=== PATIENT | male | born 1940 | race Caucasian/White ===

== ENCOUNTER 2016-06-21 13:50 | Inpatient (IN) | payer OTHER ==
[~2016-06-21] VITALS: Ht 175.3 cm; Wt 68.0 kg
[~2016-06-21 13:50] MED LIST: ASPI-612 PO
--- NOTE | 2016-06-21 13:59 | NUR ---
PT DOES NOT REMEMBER THE NAMES OF HIS HOME MEDICATION.
--- NOTE | 2016-06-21 14:05 | NUR ---
Pt c/o CP, "pressure," around 6-7/10 for 1 month, intermittantly, released from [facility] earlier this week, but pt does not recall why he was hospitalized (A&Ox2). Pt denies SOB, n/v, pain radiation, dizziness. Pt placed on monitor, EKG done and given to ERMD, O2 via NC at 2lpm. Started IV 20g Right FA, blood drawn and given to oil field laborer bedside.
[2016-06-21] MEDS ORDERED: OLANZAPINE 5 MG TABLET PO ONE (14:15)
[2016-06-21] MEDS ORDERED: OLANZAPINE 5 MG TABLET ONE (14:26)
[2016-06-21 14:34] LABS: BASOPHILS % (AUTO) 0.7 % (0.0-2.0); EOSINOPHILS # (AUTO) 0.5 K/uL (0.0-0.7); EOSINOPHILS % (AUTO) 7.6 % (0.0-7.0); HEMATOCRIT 42.8 % (36.7-47.1); HEMOGLOBIN 14.4 g/dL (12.5-16.3); LYMPHOCYTES # (AUTO) 0.9 K/uL (40.0-85.0); LYMPHOCYTES % (AUTO) 12.4 % (20.5-51.5); MEAN CORPUSCULAR HEMOGLOBIN 33.3 uug (23.8-33.4); MEAN CORPUSCULAR HGB CONC 34 g/dL (32.5-36.3); MEAN CORPUSCULAR VOLUME 98.7 fL (73.0-96.2); MONOCYTES # (AUTO) 0.5 K/uL (2.0-10.0); MONOCYTES % (AUTO) 7.7 % (0.0-11.0); NEUTROPHILS # (AUTO) 5.2 K/uL (1.8-8.9); NEUTROPHILS % (AUTO) 71.6 % (38.5-71.5); PLATELET COUNT (AUTO) 320 K/uL (152-348); RED BLOOD CELL COUNT(AUTO) 4.33 MIL/uL (4.06-5.63); WHITE BLOOD COUNT (AUTO) 7.1 K/uL (3.6-10.2)
[2016-06-21 14:41] LABS: CALCIUM 9.2 mg/dL (8.5-10.1); CREATININE 0.9 mg/dL (0.6-1.3); POTASSIUM 4.2 mmol/L (3.5-5.1)
[2016-06-21 14:49] LABS: LACTIC ACID 1.3 mmol/L (0.4-2.0); TROPONIN I 0.107 ng/mL (0.00-0.056)
[2016-06-21 14:54] LABS: ALBUMIN 3.1 g/dL (3.4-5.0); BILIRUBIN,DIRECT 0.2 mg/dL (0.0-0.2); BILIRUBIN,TOTAL 0.6 mg/dL (0.2-1.0)
[2016-06-21] MEDS ORDERED: NITROGLYCERIN OINT 1 GM PACKET TP ONE ×2 (15:00→15:33)
[2016-06-21] MEDS ORDERED: ASPIRIN 325 MG TABLET PO ONE (15:00)
[2016-06-21] MEDS ORDERED: ENOXAPARIN SODIUM 30 MG/0.3 ML DISP.SYRIN SUBCUT ONE (15:00)
[2016-06-21] MEDS ORDERED: ENOXAPARIN SODIUM 80 MG/0.8 ML DISP.SYRIN SQ ONE (15:33)
[2016-06-21] MEDS ORDERED: ASPIRIN 325 MG TABLET ONE (15:33)
--- NOTE | 2016-06-21 15:35 | NUR ---
Pt finished lunch/dinner tray
--- NOTE | 2016-06-21 15:46 | NUR ---
Gave report to ADILSON Leon
[2016-06-21 16:45] VITALS: BP 104/59
--- NOTE | 2016-06-21 17:37 | NUR ---
SPOKE TO DR MASTERSON ABOUT CONTINUING HOME MEDICATIONS, PT REPORTS ONLY ASPIRIN. DR MASTERSON REQUESTING TO LOG INTO [place] [employer] TO FIND OUT HOME MEDS, HOWEVER I DO NOT HAVE ACCESS. SPOKE WITH PHARMACY AND HOUSE SUP BUT NO BODY HAS ACCESS. WILL CALL DR MASTERSON BACK AND FOLLOW UP
[2016-06-21] MEDS ORDERED: INSULIN REGULAR, HUMAN 300 UNIT/3 ML VIAL SQ PRN (18:00)
[2016-06-21] MEDS ORDERED: INSULIN REGULAR, HUMAN 300 UNITS/3 ML VIAL SQ PRN (18:00)
[2016-06-21] MEDS ORDERED: DEXTROSE 50% 50 ML DISP.SYRIN IV PRN (18:00)
[2016-06-21] MEDS: CARVEDILOL 3.125 MG TABLET PO SCH (18:32)
[2016-06-21] MEDS: DIAZEPAM 10 MG TABLET PO PRN (18:32)
--- NOTE | 2016-06-21 19:09 | NUR ---
RECEIVED ORDERS, WILL FOLLOW THROUGH. PT RESTING IN BED, IN NO ACUTE DISTRESS. SR ON TELE CALL LIGHT IN REACH
[2016-06-21 20:00] VITALS: BP 99/58
[2016-06-21] MEDS ORDERED: BLOOD SUGAR DIAGNOSTIC 1 EACH STRIP VI SCH (21:00)
[2016-06-21] MEDS: ISOSORBIDE MONONITRATE 30 MG TAB.SR.24H PO SCH (21:00)
[2016-06-21] MEDS: ATORVASTATIN 20 MG TABLET PO SCH (21:09)
[2016-06-21] MEDS: BLOOD SUGAR DIAGNOSTIC 1 EACH STRIP VI SCH (21:35)
[2016-06-22 00:23] VITALS: BP 101/52
[2016-06-22] MEDS: DIAZEPAM 10 MG TABLET PO PRN ×3 (03:46→18:44)
[2016-06-22 04:00] VITALS: BP_SYST 104; BP_SYST 106; BP_DIAS 57
--- NOTE | 2016-06-22 05:21 | NUR ---
PT IN BED, RESTING AT THIS TIME. C/O RESTLESSNESS EARLIER , WAS GIVEN VALIUM PRESCRIBED. ON SINUS BARON/ SINUS RHYTHM ON TELE- 50'S AND 60S. NO C/O CHEST PAIN. BLOOD SUGAR LAST NIGHT WAS 100, NO COVERAGE GIVEN PER SLIDING SCALE. SAFETY MAINTAINED. CALL LIGHT WITHIN REACH.
[2016-06-22] MEDS: PANTOPRAZOLE SODIUM 40 MG TABLET.DR PO SCH (06:30)
[2016-06-22] MEDS: BLOOD SUGAR DIAGNOSTIC 1 EACH STRIP VI SCH ×4 (06:35→20:33)
[2016-06-22] MEDS: HYDROCODONE/APAP 5-325MG TABLET PO PRN ×2 (06:35→21:04)
--- NOTE | 2016-06-22 06:39 | NUR ---
C/O LEFT CHEST PAIN 10/15, NON RADIATING. REQUESTED FOR NORCO, GIVEN PRESCRIBED. BS CHECKED 124. WILL CONTINUE TO MONITOR.
[2016-06-22 07:09] LABS: ALBUMIN 2.9 g/dL (3.4-5.0); BILIRUBIN,TOTAL 0.5 mg/dL (0.2-1.0); CREATININE 1.1 mg/dL (0.6-1.3); POTASSIUM 4.8 mmol/L (3.5-5.1); TOTAL PROTEIN, SERUM 6.4 g/dL (6.4-8.2)
[2016-06-22 07:29] LABS: BASOPHILS # (AUTO) 0.1 K/uL (0.0-8.0); EOSINOPHILS # (AUTO) 1.1 K/uL (0.0-0.7); EOSINOPHILS % (AUTO) 13.8 % (0.0-7.0); HEMATOCRIT 40.7 % (36.7-47.1); HEMOGLOBIN 13.6 g/dL (12.5-16.3); LYMPHOCYTES # (AUTO) 1.3 K/uL (40.0-85.0); LYMPHOCYTES % (AUTO) 16.3 % (20.5-51.5); MEAN CORPUSCULAR HEMOGLOBIN 33.2 uug (23.8-33.4); MEAN CORPUSCULAR HGB CONC 34 g/dL (32.5-36.3); MEAN CORPUSCULAR VOLUME 98.9 fL (73.0-96.2); MONOCYTES # (AUTO) 0.6 K/uL (2.0-10.0); MONOCYTES % (AUTO) 7.7 % (0.0-11.0); NEUTROPHILS # (AUTO) 4.9 K/uL (1.8-8.9); NEUTROPHILS % (AUTO) 61.2 % (38.5-71.5); PLATELET COUNT (AUTO) 307 K/uL (152-348); RED BLOOD CELL COUNT(AUTO) 4.12 MIL/uL (4.06-5.63)
--- NOTE | 2016-06-22 08:00 | NUR ---
pT VERY FORGETFULL. iv ON RIGHT F/A #20. tele snr. pT REQUESTING TO GET ASA. Instructed pt that I would need to get orders fromt the doctor. Pt very anxious and shouting at LEGAL EDITOR about getting aspirin. Set limits with pt that we will need to get a doctors order for ASA. Pt currently denies any c/o pain. Call light is within reach.
[2016-06-22] MEDS: ISOSORBIDE MONONITRATE 30 MG TAB.SR.24H PO SCH ×2 (08:16→21:00)
[2016-06-22] MEDS: LOSARTAN POTASSIUM 25 MG TABLET PO SCH (08:16)
[2016-06-22] MEDS: CARVEDILOL 3.125 MG TABLET PO SCH ×2 (08:16→17:14)
--- NOTE | 2016-06-22 09:00 | NUR ---
Dr becker here to see pt. notified that pt is requesting for ASA. Pt is in no acute distress. Call light is within reach. Placed a call to [facility] for psychiatrist push button switch assembler to see pt for evaluation per DR. BECKER.
[2016-06-22] MEDS: ASPIRIN 325 MG TABLET PO SCH (09:49)
[2016-06-22 10:32] LABS: CALCIUM 8.7 mg/dL (8.5-10.1); CREATININE 0.9 mg/dL (0.6-1.3); POTASSIUM 4.3 mmol/L (3.5-5.1)
[2016-06-22 12:00] VITALS: BP 101/54
[2016-06-22 16:00] VITALS: BP 106/50
--- NOTE | 2016-06-22 18:13 | NUR ---
Pt has been anxiously waiting for psychiatrist. Pt denies any c/o chest pain this shift. TELE d/c per DR Tenorio client partner aware of trop levels. Call light is within reach.
--- NOTE | 2016-06-22 18:45 | NUR ---
Pt's anxiety has been managed with valium as ordered. Gave x 2 of valium today secondary to pt will c/o of anxiety. and pt was relieved from valium - effective.
--- NOTE | 2016-06-22 19:30 | NUR ---
PATIENT SITTING AT THE EDGE OF THE BED ASKING WHEN THE DOCTOR IS COMING. ALSO STATED THAT HE NEEDS HIS ASPIRIN 2 TABLETS. INFORMED TO CHECK MEDICATIONS. NO ACUTE DISTRESS NOTED AT THIS TIME. SAFETY MAINTAINED. CALL LIGHT WITHIN REACH. WILL CONTINUE TO MONITOR
[2016-06-22 20:00] VITALS: BP 103/52
--- NOTE | 2016-06-22 20:30 | NUR ---
STARTED TO GET UPSET AND ANXIOUS, STILL ASKING FOR THE PSYCHIATRIST. CALLED [facility] AND FOLLOWED UP. Addendum: 06/23/16 at 0226 by GIOVANI FERNANDEZ RN ADDENDUM: ALSO GAVE DUE MEDS EXCEPT FOR BP MED D/T DECREASED BP. ALSO MENTIONED THAT HIS ASPIRIN IS DUE IN AM. STARTED TO GET ANGRY AND STATED THAT HE TAKES 8 TABLETS AT HOME. EXPLAINED RISK AND BENEFITS OF TAKING TOO MUCH ASPIRIN BUT PATIENT DID NOT LISTEN AND WANTED TO SPEAK WITH GRINDING OPERATOR
[2016-06-22] MEDS: ATORVASTATIN 20 MG TABLET PO SCH (20:33)
--- NOTE | 2016-06-22 21:05 | NUR ---
STILL ASKING FOR HIS ASPIRIN, AGAIN INFORMED ITS NOT DUE YET. PATIENT GOT AGITATED WANTED TO LEAVE THE FACILITY STATED "I'LL JUST GO OUT TO BUY AT THE STORE RIGHT NOW." AIRCRAFT SHIPPING CHECKER AT BEDSIDE, REDIRECTED PATIENT. BUT STILL AGITATED AND KEPT CURSING AT NURSES. SPOKE WITH DR. MASTERSON INFORMED ABOUT PATIENT'S CONDITION, NO NEW ORDERS AT THIS TIME UNTIL PSYCH WILL SEE PATIENT. SAFETY MAINTAINED. WILL CONTINUE TO MONITOR
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
[2016-06-22] MEDS ORDERED: OLANZAPINE 10 MG VIAL IM ONE (22:15)
--- NOTE | 2016-06-22 22:30 | NUR ---
SPOKE WITH DR. MASTERSON INFORMED WHAT HAPPENED. WITH ORDERS
--- NOTE | 2016-06-22 22:45 | NUR ---
DR. TRIPATHI CALLED, INFORMED SITUATION. STATED TO CALL CRISIS TEAM TO EVALUATE PATIENT. SCOURING TRAIN OPERATOR CHIEF INFORMED
--- NOTE | 2016-06-22 23:05 | NUR ---
VANDANA CARRASQUILLO CRISIS TEAM CAME AND EVALUATED PATIENT
--- NOTE | 2016-06-22 23:26 | NUR ---
AFTER EVALUATION, PER CRISIS TEAM PATIENT IS NOT A CANDIDATE FOR A HOLD, DR. CRUM ON THE PHONE, MADE AWARE, GAVE TEMAZEPAM 15MG ONE TIME. WILL ADMINISTER ORDERED
[2016-06-22] MEDS ORDERED: TEMAZEPAM 15 MG CAPSULE PO ONE (23:30)
--- NOTE | 2016-06-23 02:43 | NUR ---
PATIENT NOW CALM, COMFORTABLE AND SLEEPING AT THIS TIME. WILL MONITOR
[2016-06-23 05:01] VITALS: BP 110/57
--- NOTE | 2016-06-23 06:15 | NUR ---
SLEPT INTERMITTENTLY DURING THE SHIFT. PATIENT STATED "IM SO SORRY ABOUT LAST NIGHT". ALL DUE MEDS GIVEN ORDERED. CALM AND COMFORTABLE. NO ACUTE DISTRESS NOTED. NEEDS ATTENDED. CALL LIGHT WITHIN REACH
[2016-06-23] MEDS: PANTOPRAZOLE SODIUM 40 MG TABLET.DR PO SCH (06:36)
[2016-06-23] MEDS: BLOOD SUGAR DIAGNOSTIC 1 EACH STRIP VI SCH ×2 (06:36→11:44)
--- NOTE | 2016-06-23 08:00 | NUR ---
Pt is in no acute distress. Pt cooperative with taking his medications. Pt denies jessika c/o chest pain. Call light is within reach.
[2016-06-23] MEDS: ISOSORBIDE MONONITRATE 30 MG TAB.SR.24H PO SCH (08:17)
[2016-06-23] MEDS: ASPIRIN 325 MG TABLET PO SCH (08:17)
[2016-06-23 08:18] VITALS: BP 125/62
[2016-06-23] MEDS: LOSARTAN POTASSIUM 25 MG TABLET PO SCH (08:18)
[2016-06-23] MEDS: CARVEDILOL 3.125 MG TABLET PO SCH (08:18)
[2016-06-23] MEDS ORDERED: CARV3.122 PO (09:12)
[2016-06-23] MEDS ORDERED: PANT40TA2 PO ×2 (09:12→19:38)
[2016-06-23] MEDS ORDERED: ATOR20TA PO ×2 (09:12→19:44)
[2016-06-23] MEDS ORDERED: Isosorbide Mononitrate PO (09:12)
[2016-06-23] MEDS ORDERED: Losartan Potassium PO (09:12)
[2016-06-23] MEDS ORDERED: INSU100V28 SQ ×2 (09:12)
[2016-06-23] MEDS ORDERED: TAMS-3 PO ×2 (09:24→19:39)
[2016-06-23] MEDS ORDERED: TAMSULOSIN HCL 0.4 MG CAP.SR.24H PO SCH (09:30)
--- NOTE | 2016-06-23 10:00 | NUR ---
Dr Tirado saw pt and will plan for d/c to [facility] with Dr Pennington for psychiatry. Pt willing to go to [facility] as voluntary " i want them to help me with my anxiousness. I get anxiety all the time"
[2016-06-23] MEDS: DIAZEPAM 10 MG TABLET PO PRN (14:47)
--- NOTE | 2016-06-23 16:00 | NUR ---
Report given to Eros CALVO U. IV d/c. Medications reconcilled by dr becker. Pt is in no acute distress upon d/c to [facility]
[2016-06-23] MEDS ORDERED: HYDR-3326 PO (18:49)
[2016-06-23] MEDS ORDERED: DIAZ10TA4 PO (18:49)
[2016-06-23] MEDS ORDERED: BLOO-668 IN (18:50)
[2016-06-23] MEDS ORDERED: LOSA25TA3 PO (19:40)
[2016-06-23] MEDS ORDERED: ISOS30TA6 PO (19:43)
[2016-06-23] MEDS ORDERED: CARV3.12 PO (19:46)
== END 2016-06-23 16:00 | DRG 313 ==
LOC: ER 13:50 → TELE 15:47 → MED 06-22 13:55
PROVIDERS: ADMIT Internal Medicine; ATTEND Internal Medicine
DX: R07.89 Other chest pain (principal); I25.10 Atherosclerotic heart disease of native coronary artery without angina pectoris; E11.9 Type 2 diabetes mellitus without complications; I10 Essential (primary) hypertension; Z95.1 Presence of aortocoronary bypass graft; F32.9 Major depressive disorder, single episode, unspecified; E78.5 Hyperlipidemia, unspecified; N40.0 Benign prostatic hyperplasia without lower urinary tract symptoms; J44.9 Chronic obstructive pulmonary disease, unspecified; Z91.14 Patient's other noncompliance with medication regimen; F41.9 Anxiety disorder, unspecified
CPT/HCPCS: 36415; 70030-TC; 71010; 83605; 85025; 85730; 87040; 93005; A4663; J1650; J1815; J2358; J7030

== ENCOUNTER 2016-06-23 16:32 | Inpatient (IN) | payer OTHER ==
[~2016-06-23] VITALS: Ht 165.1 cm; Wt 72.6 kg
--- NOTE | 2016-06-23 16:15 | NUR ---
GPS: Nursing Notes: Admission Notes: Patient admitted to [facility], voluntary with provisional Dx: Mood Disorder, NOS from Med. Surg., 2nd. floor admitted there with Dx: Chest pain on 06/21/16, transfer to [facility], upon face evaluation, patient is anxious, poor anger management, gets easily irritable when redirected, episodes of mood swings, poor grooming, depressed mood, low energy level, refusing to shower at this time Dr. Faye and Celestino were notify by charge nurse.
[~2016-06-23 16:32] MED LIST changes: +ATOR20TA PO; +CARV3.122 PO; +INSU100V28 SQ; +Isosorbide Mononitrate PO; +Losartan Potassium PO; +PANT40TA2 PO; +TAMS-3 PO
[2016-06-23] MEDS ORDERED: MAG HYDROX/AL HYDROX/SIMETH 30 ML LIQUID UDC PO PRN (17:00)
[2016-06-23] MEDS ORDERED: MAGNESIUM HYDROXIDE 30 ML LIQUID UDC PO PRN (17:00)
[2016-06-23] MEDS: ACETAMINOPHEN 325 MG TABLET PO PRN (18:24)
[2016-06-23] MEDS ORDERED: DIAZ10TA4 PO (18:49)
[2016-06-23] MEDS ORDERED: HYDR-3326 PO (18:49)
[2016-06-23] MEDS ORDERED: BLOO-668 IN (18:50)
[2016-06-23] MEDS ORDERED: PANT40TA2 PO (19:38)
[2016-06-23] MEDS ORDERED: TAMS-3 PO (19:39)
[2016-06-23] MEDS ORDERED: LOSA25TA3 PO (19:40)
[2016-06-23] MEDS ORDERED: ISOS30TA6 PO (19:43)
[2016-06-23] MEDS ORDERED: ATOR20TA PO (19:44)
[2016-06-23] MEDS ORDERED: CARV3.12 PO (19:46)
[2016-06-23] MEDS ORDERED: DIAZEPAM 10 MG TABLET PO PRN (20:00)
[2016-06-23] MEDS: TRAZODONE 50 MG TABLET PO SCH (20:03)
[2016-06-23] MEDS: DIVALPROEX 125 MG TABLET.DR PO SCH (20:03)
[2016-06-23] MEDS ORDERED: DEXTROSE 50% 50 ML DISP.SYRIN IV PRN (20:15)
[2016-06-23] MEDS ORDERED: INSULIN REGULAR, HUMAN 300 UNITS/3 ML VIAL SQ PRN (20:15)
[2016-06-23] MEDS ORDERED: HYDROCODONE/APAP 5-325MG TABLET PO PRN (20:15)
[2016-06-23 20:32] VITALS: BP 127/64
[2016-06-23] MEDS ORDERED: BLOOD SUGAR DIAGNOSTIC 1 EACH STRIP VI SCH (21:00)
--- NOTE | 2016-06-23 21:00 | NUR ---
received to care, visible on unit, appearing anxious, requesting medications, for anxiety. 2100 meds were given at 1999, at his request. as of 2099, he remains anxious, requesting to be released. charge nurse was notified of request.
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
[2016-06-23] MEDS: ATORVASTATIN 20 MG TABLET PO SCH (21:34)
[2016-06-23] MEDS: TAMSULOSIN HCL 0.4 MG CAP.SR.24H PO SCH (21:35)
[2016-06-23] MEDS: ISOSORBIDE MONONITRATE 30 MG TAB.SR.24H PO SCH (21:35)
--- NOTE | 2016-06-23 21:40 | NUR ---
PT IS CONSTANTLY ASKING TO BE RELEASED, REQUIRING FREQUENT REALITY ORIENTATION, NOTED TO BE VERY FORGETFUL, MED SEEKING, REPETITIOUS, ANXIOUS, RESTLESS, MANIPULATIVE, VERBALLY AGGRESSIVE, SCRATCHED STAFF ANDROID IOS DEVELOPER ON THE ARM. DR CRUM NOTIFIED, ORDER TO CALL CRISIS TEAM TO EVALUATE PT FOR POSSIBLE 5150 OBTAINED.
[2016-06-23] MEDS: BLOOD SUGAR DIAGNOSTIC 1 EACH STRIP VI SCH (21:49)
--- NOTE | 2016-06-23 21:50 | NUR ---
CRISIS TEAM STAFF CAR PILOT NOTIFIED. PER PEÑA, PT WAS AUTHORIZED BY HIS INSURANCE FOR ONLY VOLUNTARY ADMISSION, BUT ADVISED STAFF TO CALL [facility] IF PT INSISTS ON LEAVING. WILL CONTINUE TO MONITOR CLOSELY.
--- NOTE | 2016-06-23 21:55 | NUR ---
PRN valium was given. continues to request to be released. assisted to bed.
[2016-06-23] MEDS ORDERED: DIAZEPAM 5 MG TABLET ONE (22:02)
--- NOTE | 2016-06-23 22:10 | NUR ---
pt attempted to climb out of bed. assisted to the bethroom, shower given, and placed in the brooklyn chair, at the nurses station.
--- NOTE | 2016-06-23 22:30 | NUR ---
pt urinated on the floor, next to his chair, stating, "THAT'LL TEACH YOU". he was assisted to the bathroom, assisted with diaper and clean clothes, and placed in the brooklyn chair. continues to yell intermittently. will continue to monitor closely.
[2016-06-24] MEDS: ACETAMINOPHEN 325 MG TABLET PO PRN (00:51)
[2016-06-24] MEDS: TEMAZEPAM 7.5 MG CAPSULE PO PRN (00:51)
--- NOTE | 2016-06-24 00:51 | NUR ---
remains awake, and restless. PRN restoril was given, at this time.
--- NOTE | 2016-06-24 01:30 | NUR ---
assisted to bed
--- NOTE | 2016-06-24 01:45 | NUR ---
placed back in brooklyn chair, after attempting to climb out of bed.
--- NOTE | 2016-06-24 02:00 | NUR ---
pt urinated on the wall.
[2016-06-24] MEDS ORDERED: LORAZEPAM 2 MG/1 ML VIAL IM ONE (03:30)
[2016-06-24] MEDS ORDERED: OLANZAPINE 10 MG VIAL IM ONE ×2 (03:30→03:42)
--- NOTE | 2016-06-24 03:41 | NUR ---
remains agitated, and yelling. attempted to strike staff when redirected. Dr Faye was paged. orders received. IM zyprexa 5 mg,(r deltoid) and IM ativan 1 mg,(l deltoid) was given, at this time.
[2016-06-24] MEDS ORDERED: LORAZEPAM 2 MG/1 ML VIAL ONE (03:42)
--- NOTE | 2016-06-24 04:30 | NUR ---
appears calmer, now.
[2016-06-24 05:13] LABS: *BILIRUBIN,URIN NEGATIVE (NEGATIVE); *BLOOD, URINE Trace-intact (NEGATIVE); *CLARITY,URINE CLEAR (CLEAR); *COLOR,URINE YELLOW (YELLOW); *KETONES,URINE NEGATIVE (NEGATIVE); *PROTEIN,URINE NEGATIVE (NEGATIVE); *UROBILINOGEN,URINE 0.2 E.U./dl (NORMAL); LEUKOCYTE ESTERASE ,URINE NEGATIVE (NEGATIVE); NITRITE, URINE NEGATIVE (NEGATIVE); UGLUCOSE NEGATIVE (NEGATIVE)
[2016-06-24 05:20] LABS: BACTERIA,URINE FEW /HPF (NONE SEEN); SQUAMOUS EPITHELIAL CELL,UR FEW /HPF (NONE SEEN); WBC,URINE 0-3 /HPF (0-3)
--- NOTE | 2016-06-24 05:33 | NUR ---
continues to be calm, and cooperative. assisted with AM care.
[2016-06-24] MEDS: BLOOD SUGAR DIAGNOSTIC 1 EACH STRIP VI SCH ×4 (06:05→20:25)
[2016-06-24] MEDS: PANTOPRAZOLE SODIUM 40 MG TABLET.DR PO SCH (06:10)
--- NOTE | 2016-06-24 06:28 | NUR ---
remains calm. currently sitting in a chair, at the nurses station. monitored closely, for safety. no distress noted.
[2016-06-24 07:30] VITALS: BP 109/54
[2016-06-24] MEDS: ASPIRIN 325 MG TABLET PO SCH (09:00)
[2016-06-24] MEDS: NICOTINE 21 MG/24HR PATCH TD SCH (09:00)
[2016-06-24] MEDS: CARVEDILOL 3.125 MG TABLET PO SCH ×2 (09:01→16:52)
[2016-06-24] MEDS: ISOSORBIDE MONONITRATE 30 MG TAB.SR.24H PO SCH ×2 (09:01→20:32)
[2016-06-24] MEDS: DIVALPROEX 125 MG TABLET.DR PO SCH ×2 (09:01→20:27)
[2016-06-24] MEDS: LOSARTAN POTASSIUM 25 MG TABLET PO SCH (09:01)
[2016-06-24] MEDS: ESCITALOPRAM OXALATE 10 MG TABLET PO SCH (09:02)
--- NOTE | 2016-06-24 12:09 | NUR ---
Initial discharge instructions: Patient resides at home with his nephew,Anthony [[address] [address] [place],[address];[phone]].Per pt,he would like to return home upon discharge.SW attempted to call pt's nephew,Anthony [phone] but no answer and voicemail is not setup.SW will continue to contact family.SW will speak with patient,family,and MD regarding appropriate discharge plans.SW will form a safe and proper discharge.
[2016-06-24] MEDS ORDERED: DIAZEPAM 5 MG TABLET ONE (14:14)
[2016-06-24] MEDS ORDERED: DIAZEPAM 5 MG TABLET PO PRN (14:15)
--- NOTE | 2016-06-24 14:19 | NUR ---
UR Note: CLEMENTINA called Caroline WISE with [facility] [PH: [phone] Ext.[phone]/FX: [phone] and no answer. CLEMENTINA left voicemail with current clinicals, awaiting authorization. Addendum: 06/24/16 at 1459 by CULLEN MCRAE CLEMENTINA called Caroline WISE and left another voicemail informing her that the patient is now on a 5150 for grave disability. Additional clinicals from the evaluation were included in voicemail. CLEMENTINA awaiting call back with authorization.
[2016-06-24 16:00] VITALS: BP 140/76
[2016-06-24] MEDS: INSULIN REGULAR, HUMAN 300 UNIT/3 ML VIAL SQ PRN (17:00)
[2016-06-24] MEDS: ATORVASTATIN 20 MG TABLET PO SCH (20:27)
[2016-06-24] MEDS: TAMSULOSIN HCL 0.4 MG CAP.SR.24H PO SCH (20:27)
[2016-06-24] MEDS: TRAZODONE 50 MG TABLET PO SCH (20:27)
[2016-06-24 20:32] VITALS: BP 105/62
[2016-06-25] MEDS: PANTOPRAZOLE SODIUM 40 MG TABLET.DR PO SCH (06:26)
[2016-06-25] MEDS: BLOOD SUGAR DIAGNOSTIC 1 EACH STRIP VI SCH ×4 (06:31→20:23)
[2016-06-25 07:30] VITALS: BP 105/54
[2016-06-25] MEDS: LOSARTAN POTASSIUM 25 MG TABLET PO SCH (08:59)
[2016-06-25] MEDS: CARVEDILOL 3.125 MG TABLET PO SCH ×2 (08:59→18:00)
[2016-06-25] MEDS: ASPIRIN 325 MG TABLET PO SCH (08:59)
[2016-06-25] MEDS: NICOTINE 21 MG/24HR PATCH TD SCH (09:00)
[2016-06-25] MEDS: ISOSORBIDE MONONITRATE 30 MG TAB.SR.24H PO SCH ×2 (09:00→20:25)
[2016-06-25] MEDS: ESCITALOPRAM OXALATE 10 MG TABLET PO SCH (09:01)
[2016-06-25] MEDS: DIVALPROEX 125 MG TABLET.DR PO SCH ×2 (09:01→20:25)
[2016-06-25] MEDS: INSULIN REGULAR, HUMAN 300 UNIT/3 ML VIAL SQ PRN ×2 (12:11→16:48)
--- NOTE | 2016-06-25 13:15 | NUR ---
SEMICONDUCTOR PROCESSOR WITNESSEDNUR PTS NEPHEW ASKING PT TO SIGN CHECKS FOR HIM. NURSING STAFF ASKED VISITOR TO LEAVE SINCE VISITING HOURS WERE OVER. VISITOR WAS ACTING VERY BIZARRE, INAPPROPRIATELY LAUGHING AND REFUSED TO LEAVE. SECURITY ESCORTED VISITOR OFF THE UNIT.
--- NOTE | 2016-06-25 15:51 | NUR ---
UR Note: CLEMENTINA spoke with Martinez WISE with [facility] [PH: [phone] Ext.[phone]/FX: [phone] who stated [facility]ILLIE-Car[facility] Oconnell will be out. Martinez requested that all clinicals be faxed, and provided authorization for 06/24/16-06/25/16. Authorization #[id number]
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
[2016-06-25 16:00] VITALS: BP 95/51
--- NOTE | 2016-06-25 18:02 | NUR ---
1800: COREG HELD. BP: 95/51, P=65. DENIES HEADACHE, N/V, DIZZINESS.
[2016-06-25] MEDS: ACETAMINOPHEN 325 MG TABLET PO PRN (18:03)
[2016-06-25] MEDS: ATORVASTATIN 20 MG TABLET PO SCH (20:25)
[2016-06-25] MEDS: TRAZODONE 50 MG TABLET PO SCH (20:25)
[2016-06-25] MEDS: TAMSULOSIN HCL 0.4 MG CAP.SR.24H PO SCH (20:25)
[2016-06-25] MEDS: TEMAZEPAM 7.5 MG CAPSULE PO PRN (22:44)
[2016-06-26] MEDS: BLOOD SUGAR DIAGNOSTIC 1 EACH STRIP VI SCH ×4 (06:31→20:35)
[2016-06-26] MEDS: PANTOPRAZOLE SODIUM 40 MG TABLET.DR PO SCH (06:38)
[2016-06-26 07:30] VITALS: BP 119/59
[2016-06-26] MEDS: ESCITALOPRAM OXALATE 10 MG TABLET PO SCH (08:22)
[2016-06-26] MEDS: ASPIRIN 325 MG TABLET PO SCH (08:22)
[2016-06-26] MEDS: NICOTINE 21 MG/24HR PATCH TD SCH (08:22)
[2016-06-26] MEDS: DIVALPROEX 125 MG TABLET.DR PO SCH ×2 (08:22→20:33)
[2016-06-26] MEDS: LOSARTAN POTASSIUM 25 MG TABLET PO SCH (08:23)
[2016-06-26] MEDS: CARVEDILOL 3.125 MG TABLET PO SCH ×2 (08:23→17:59)
[2016-06-26] MEDS: ISOSORBIDE MONONITRATE 30 MG TAB.SR.24H PO SCH ×2 (08:23→20:25)
--- NOTE | 2016-06-26 10:54 | NUR ---
UR Note: Faxed most recent/available clinicals today to BILLIE Tijerina/Caroline [ [phone]. [phone]]. Authorization #[id number]
[2016-06-26 15:59] VITALS: BP 108/54
--- NOTE | 2016-06-26 16:01 | NUR ---
GPS: Nursing Notes: Dr. Tirado inform of D/C: Dr. Tirado informed of patient being discharge tomorrow, per Dr. Tirado, patient does not need prescription because he did not order any new medications, Dr. Tirado to follow up with patient for aftercare.
--- NOTE | 2016-06-26 16:14 | NUR ---
DC Note: The patient will be discharged back home on Wednesday06/27/16 [[address] [address] [place],[address];[phone]]. Per CLEMENTINA Boone, the patient's nephew Vj will be able to meat pickler the patient tomorrow and take him home. CLEMENTINA has called Vj multiple times today to confirm that he will meat pickler the patient tomorrow (Wednesday06/27/16) and has been awaiting call back. He is aware that he must call the [facility] and confirm with one of the staff members that he will be coming tomorrow. The patient is aware and agreeable with the discharge plan. The patient does not have a psychiatrist. Per CLEMENTINA Boone, the patient has an outpatient appointment with Bacilio Mixon LCSW [[id number] [address]; ] on Wednesday06/30/16 at 12:30 pm. Per Rox Choudhury LCSW, Bacilio Mixon will arrange an appointment with psychiatrist Dr. Sukumar Hernandez for the patient. The patient will follow-up with his pump press operator Dr. Oj Torres [[address], [place] [address] ].
[2016-06-26] MEDS ORDERED: PNEUMOCOCCAL 23-VAL P-SAC VAC 0.5 ML VIAL IM ONE (18:00)
[2016-06-26] MEDS: ATORVASTATIN 20 MG TABLET PO SCH (20:33)
[2016-06-26] MEDS: TRAZODONE 50 MG TABLET PO SCH (20:33)
[2016-06-26] MEDS: TAMSULOSIN HCL 0.4 MG CAP.SR.24H PO SCH (20:33)
[2016-06-26] MEDS: ACETAMINOPHEN 325 MG TABLET PO PRN (20:38)
[2016-06-26 20:56] VITALS: BP 102/51
[2016-06-26] MEDS: TEMAZEPAM 7.5 MG CAPSULE PO PRN (22:57)
--- NOTE | 2016-06-27 03:02 | NUR ---
GPS: Pt.awake at this time and has been anxious and easily irritable when being re-directed. Confused,disoriented and with poor insight to present situation. Re-assured prn. Refused Valium prn when offered for anxiety/agitation despite numerous attempts. Limit setting done by staff. Will monitor behavior for possible escalation. Safety emphasized.
[2016-06-27] MEDS: PANTOPRAZOLE SODIUM 40 MG TABLET.DR PO SCH (06:20)
[2016-06-27] MEDS: BLOOD SUGAR DIAGNOSTIC 1 EACH STRIP VI SCH ×2 (06:35→11:25)
[2016-06-27 07:30] VITALS: BP 122/66
[2016-06-27] MEDS: ESCITALOPRAM OXALATE 10 MG TABLET PO SCH (08:07)
[2016-06-27] MEDS: ASPIRIN 325 MG TABLET PO SCH (08:07)
[2016-06-27] MEDS: LOSARTAN POTASSIUM 25 MG TABLET PO SCH (08:07)
[2016-06-27] MEDS: NICOTINE 21 MG/24HR PATCH TD SCH (08:07)
[2016-06-27] MEDS: ISOSORBIDE MONONITRATE 30 MG TAB.SR.24H PO SCH (08:07)
[2016-06-27] MEDS: DIVALPROEX 125 MG TABLET.DR PO SCH (08:07)
[2016-06-27 08:08] VITALS: BP 122/66
[2016-06-27] MEDS: CARVEDILOL 3.125 MG TABLET PO SCH (08:08)
[2016-06-27] MEDS ORDERED: PNEUMOCOCCAL 23-VAL P-SAC VAC 0.5 ML VIAL IM ONE (09:00)
[2016-06-27] MEDS: ACETAMINOPHEN 325 MG TABLET PO PRN (10:23)
--- NOTE | 2016-06-27 14:00 | NUR ---
GPS: Nursing Notes: Discharge Notes: Patient awake and responding to his name, ambulatory, self care, A/Ox3, compliant with nursing care and medications, following staff directions, denies any SI/HI, denies any AH/VH, denies any pain or discomfort denies any SOB, [place] home [place] derick [place] [address] [address] [place], [place] [id number] , picked up by nephnick - Vj, transported to his home with nephew via private vehicle, prescriptions and instructions given to patient and nephew, took all his belongings with him. The patient does not have a psychiatrist. Per CLEMENTINA Boone, the patient has an outpatient appointment with Bacilio Mixon LCSW [[address] [address]; ] on Wednesday06/30/16 at 12:30 pm. Per Rox Choudhury LCSW, Bacilio Mixon will arrange an appointment with psychiatrist Dr. Sukumar Hernandez for the patient. The patient will follow-up with his registered nurse cardiac Dr. Oj Torres [[id number], [place] [address] ].
== END 2016-06-27 14:00 | disposition home or self-care (01) | DRG 885 ==
LOC: GPS 16:32
PROVIDERS: ADMIT Psychiatry & Neurology Psychiatry; ATTEND Psychiatry & Neurology Psychiatry
DX: F32.2 Major depressive disorder, single episode, severe without psychotic features (principal); F10.21 Alcohol dependence, in remission; I25.10 Atherosclerotic heart disease of native coronary artery without angina pectoris; Z95.1 Presence of aortocoronary bypass graft; N40.0 Benign prostatic hyperplasia without lower urinary tract symptoms; J44.9 Chronic obstructive pulmonary disease, unspecified; F41.9 Anxiety disorder, unspecified; E78.5 Hyperlipidemia, unspecified; E11.9 Type 2 diabetes mellitus without complications; I10 Essential (primary) hypertension
CPT/HCPCS: 87086; 90732; 97001; J1815; J2060; J2358